=== PATIENT | male | born 1995 | race Caucasian/White ===

== ENCOUNTER → 2018-04-10 | Outpatient (CLI) | payer BC ==
[~2018-04-10] MED LIST: ALBU90OI INH; ANTI-DEPRESSANT; CIPR500 PO; CLAR250SU PO; CODACE30 PO; CODGUAEL PO; CRUTCH USE; CYCL10 PO; Cipro500 MG PO; Flomax0.4 MG PO; HYDACE5 PO; HYDACE7.5L PO; IBUHYD PO; IBUP600 PO; KETO10 PO; NAPR550 PO; ONDA4ODT MM; OXYACE5T PO; OXYACE7.5T PO; POTCIT10; POTCIT5 PO; PROM25 PO; Percocet 5-3251 EACH PO; Pyridium200 MG; RXCODACET PO; TAMS.4ER PO; VENL25 PO; Zofran8 MG PO; [UNRECOGNIZED DRUG - OTHER]
== END | disposition home or self-care (01) ==
LOC: LAB SHORT 17:45 → LAB EV 17:45
DX: J02.9 Acute pharyngitis, unspecified (principal)
CPT/HCPCS: 87070

== ENCOUNTER 2024-10-04 07:30 | Emergency (ER) | payer OTHER ==
[~2024-10-04] VITALS: Ht 177.8 cm; Wt 77.1 kg
[~2024-10-04 07:30] MED LIST changes: +ALPR1 PO; +Ativan1 MG PO; +Lexapro 10 mg T10 MG PO; -POTCIT10; +UROCIT-K5 MEQ PO
[2024-10-04 09:27] VITALS: BP 130/81
[2024-10-04] MEDS ORDERED: Ketorolac Tromethamine 15mg Vial IV ONE (10:00)
[2024-10-04 10:07] LABS: Source, Urine Clean Catch
[2024-10-04 10:11] LABS: Appearance, Urine Clear (Clear); Bilirubin, Urine Neg (Neg); Blood, Urine Neg (Neg); Glucose Qualitative, Urine Neg (Neg); Ketones, Urine Neg (Neg); Leukocyte Esterase, Urine Neg (Neg); Nitrite, Urine Neg (Neg); Protein, Urine Neg (Neg); Specific Gravity, Urine 1.005 (1.003-1.022); Urobilinogen, Urine NORM (Normal)
[2024-10-04 10:15] LABS: BASOPHILS ABSOLUTE AUTO 0.03 K/mm3 (0.00-0.23); BASOPHILS PERCENT AUTO 1 % (0-2); EOSINOPHILS ABSOLUTE AUTO 0.05 K/mm3 (0.00-0.68); EOSINOPHILS PERCENT AUTO 1 % (0-6); Hematocrit 44.9 % (37.0-53.0); Hemoglobin 16.3 g/dL (13.5-17.5); IMMATURE GRAN PERCENT AUTO 0 % (0-1); LYMPHOCYTES ABSOLUTE AUTO 1.65 K/mm3 (0.84-5.20); LYMPHOCYTES PERCENT AUTO 30 % (21-46); MONOCYTES ABSOLUTE AUTO 0.47 K/mm3 (0.16-1.47); MONOCYTES PERCENT AUTO 9 % (4-13); Mean Corpuscular HGB 31.5 pg (26.0-34.0); Mean Corpuscular HGB Conc 36.3 g/dL (31.5-36.5); Mean Corpuscular Volume 87 fL (80-100); Mean Platelet Volume 10.3 fL (9.1-12.4); NEUTROPHILS ABSOLUTE AUTO 3.25 K/mm3 (1.96-9.15); NEUTROPHILS PERCENT AUTO 60 % (41-73); Platelet Count 190 K/mm3 (150-400); RDW Coefficient Variation 12.1 % (11.7-14.2); RDW Standard Deviation 38.9 fL (35.1-46.3); Red Blood Cell Count 5.17 M/mm3 (4.30-5.90); White Blood Cell Count 5.45 K/mm3 (4.00-11.30)
[2024-10-04 10:20] LABS: Color, Urine Pale Yellow (P-Yellow)
[2024-10-04 10:38] LABS: Albumin, Blood 4.6 g/dL (3.4-5.0); Albumin/Globulin Ratio 1.4 (0.8-1.8); Bilirubin, Total 1.3 mg/dL (0.1-1.0); Bun/Creatinine Ratio 11.7 (12.0-20.0); Calcium, Blood 9.7 mg/dL (8.5-10.1); Creatinine, Blood 0.68 mg/dL (0.60-1.20); Globulin, Blood 3.4 g/dL (2.2-4.0); Potassium, Blood 3.7 mmol/L (3.5-5.5)
== END 2024-10-04 11:20 | disposition home or self-care (01) ==
LOC: ER 07:30
PROVIDERS: Physician Assistant
DX: N21.0 Calculus in bladder (principal); Z79.899 Other long term (current) drug therapy; Z88.5 Allergy status to narcotic agent
CPT/HCPCS: 74177; 80053; 81003; 85025; 96374-59; 99284-25; J1885; Q9967